=== PATIENT | male | born 2000 | race Two or more races ===

== ENCOUNTER 2024-07-02 18:48 | Emergency (ER) | payer MEDICAID, SELFPAY ==
--- NOTE | 2024-07-02 18:54 | EKG_ITS ---
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
[2024-07-02 19:09] VITALS: BP 124/75; PULSE 63; RESP 18; TEMP 36.9; O2SAT 98; BMI 27.1
--- NOTE | 2024-07-02 19:16 | XR_ITS ---
Examination: PA chest single view Technique: Upright PA chest single view Exam date and time: July 02, 2024 1948 hrs. Indications: Shortness of breath chest pain today. Findings: Normal heart size No pneumonia or pulmonary edema. The osseous structures are intact Impression: No active disease
--- NOTE | 2024-07-02 19:16 | EDRME_ITS ---
Rapid Medical Screening Exam [facility] Arrival date/time: 07/02/24 18:48 24M with no significant PMH presents to ED with muscle cramps, back pain, and SOB. Chief Complaint: Shortness of Breath/Dyspnea Vital signs: Vital Signs Temperature 98.5 F 07/02/24 19:09 Pulse Rate 63 07/02/24 19:09 Respiratory Rate 18 07/02/24 19:09 Blood Pressure 124/75 07/02/24 19:09 Pulse Oximetry (%) 98 07/02/24 19:09 Oxygen Delivery Method Room Air 07/02/24 19:09
[2024-07-02 20:09] LABS: Basophils % (Auto) 0 % (0-2.5); Eosinophils # (Auto) 0.2 Thou/mm3 (0.0-0.5); Eosinophils % (Auto) 1 % (0-10); Hematocrit 44.4 % (41.0-53.0); Hemoglobin 14.8 g/dL (13.5-16.0); Immature Granulocytes % (Auto) 0 % (0-0); Immature Granulocytes Auto 0.04 Thou/mm3 (0.00-0.00); Lymphocytes % (Auto) 17 % (10-50); Mean Corpuscular HGB Conc 33.3 g/dl (31.0-37.0); Mean Corpuscular Hemoglobin 28.5 pg (25.0-35.0); Mean Corpuscular Volume 86 fL (80-100); Monocytes # (Auto) 0.8 Thou/mm3 (0.0-0.8); Monocytes % (Auto) 7 % (0-12); Neutrophils # (Auto) 8.6 Thou/mm3 (1.8-7.7); Neutrophils % (Auto) 74 % (37-80); Nucleated Red Blood Cell % 0 /100 WBC (0); Platelet Count 332 Thou/mm3 (140-440); RDW Standard Deviation 42.3 fL (35.1-43.9); Red Blood Count 5.19 Miln/mm3 (4.50-5.90); White Blood Count 11.6 Thou/mm3 (3.8-10.6)
[2024-07-02 20:21] LABS: Collection Type, Urine Clean Catch; RBC,Urine 0 /hpf (0-3); Squamous Epithelial Cell,Urine 0 /hpf (0-5); WBC,Urine 0 /hpf (0-5)
[2024-07-02 20:22] LABS: Alanine Aminotransferase 12 U/L (10-49); Albumin, Serum 4.7 gm/dL (3.5-5.0); Albumin/Globulin Ratio 1.7 (1.2-2.2); Alkaline Phosphatase 62 U/L (46-116); Anion Gap 4 (7-16); Aspartate Amino Transferase 13 U/L (0-34); BUN/Creatinine Ratio 14 Ratio (12-20); Bilirubin,Total 0.3 mg/dL (0.3-1.2); Blood Urea Nitrogen 14 mg/dL (9-23); Calcium 10.1 mg/dL (8.3-10.6); Calcium (Corrected) 10.1 mg/dL (8.5-10.1); Carbon Dioxide 29.9 mMol/L (20.0-31.0); Chloride 106 mMol/L (98-107); Estimated Creatinine Clearance 113.9 mL/min (>60); Globulin 2.7 gm/dL (2.3-3.5); Glucose 91 mg/dL (74-106); Osmolality,Calculated 279 (275-295); Potassium 4.2 mMol/L (3.4-5.1); Sodium 140 mMol/L (136-145); Total Protein 7.4 gm/dL (5.7-8.2); Troponin I < 0.002 ng/mL (0.0-0.045); eGFR > 60 See Note
[2024-07-02 20:52] LABS: Amorphous Crystals,Urine Present (Absent); Bilirubin,Urine Negative (Negative); Blood,Urine Negative (Negative); Color,Urine Yellow (Lt Yel-Yel); Culture Indicated,Urine Not Indicated; Glucose, Urine Negative (Negative); Ketones,Urine Negative (Negative); Leukocyte Esterase,Urine Negative (Negative); Nitrite,Urine Negative (Negative); Protein,Urine Negative (Neg - Trace); Specific Gravity,Urine 1.024 (1.001-1.035); Urobilinogen,Urine Negative mg/dL (0.0-1.0)
[2024-07-02 20:53] LABS: Clarity,Urine Cloudy (Clear/Hazy)
[2024-07-02 21:51] LABS: Amphetamine/Methamp Scrn,U Negative (Negative); Barbiturate Screen,Urine Negative (Negative); Benzodiazepines Screen,Urine Negative (Negative); Benzoylecgonine Screen, Ur Negative (Negative); Fentanyl Screen,Urine Negative (Negative); Opiate Screen,Urine Negative (Negative); THC Screen,Urine Negative (Negative)
--- NOTE | 2024-07-02 22:22 | PC.NURSE ---
called pt @2221 from lobby and outside for revitals no answer
--- NOTE | 2024-07-02 22:45 | PC.NURSE ---
called pt in er lobby and outside of er and no answer.
--- NOTE | 2024-07-02 23:14 | PC.NURSE ---
called pt outside of er and in lobby and no answer.
== END 2024-07-02 23:19 | disposition left against medical advice (07) ==
LOC: SERX 19:56
PROVIDERS: Physician Assistant; Emergency Provider Emergency Medicine
DX: R06.02 Shortness of breath (principal); M54.9 Dorsalgia, unspecified; R25.2 Cramp and spasm; Z53.21 Procedure and treatment not carried out due to patient leaving prior to being seen by health care provider
CPT/HCPCS: 36415; 71045; 80053; 80307; 81001; 84484; 85025; 93005; 99281

== ENCOUNTER 2024-08-03 09:44 | Emergency (ER) | payer MEDICAID, SELFPAY ==
[2024-08-03 09:45] VITALS: BMI 26.6
[2024-08-03 09:56] VITALS: BP 125/81; PULSE 120; RESP 20; TEMP 38.1; O2SAT 96
--- NOTE | 2024-08-03 10:00 | XR_ITS ---
Examination: AP lateral chest 2 views TECHNIQUE: Upright AP lateral chest 2 views Exam date and time: August 03, 2024 1019 hours INDICATIONS: Chest pain coughing fever beginning 2 weeks ago. FINDINGS: Normal heart size. Lungs are clear. The osseous structures are intact IMPRESSION: No active disease
[2024-08-03] MEDS: IBUPROFEN TAB 400 MG TABLET 800 MG PO (10:15)
[2024-08-03] MEDS: PROMETHAZINE/DM SYRUP 5 ML DOSE PO (10:16)
--- NOTE | 2024-08-03 11:31 | EDNOTE_ITS ---
Upper Respiratory Inf. RME/HPI General Chief Complaint: Flu Like Symptoms Stated Complaint: CHEST PAIN. COUGH, HEADACHE Time Seen by Provider: 08/03/24 09:48 Arrival date/time: 08/03/24 09:44 24-year-old male with no significant medical problems presents emergency department today complaints of cough, congestion, headache, body aches ongoing for the last few days Limitations: no limitations Related Data Home Medications ?Medication ?Instructions ?Recorded ?Confirmed amoxicillin 875 mg-potassium 1 tab PO BID 05/05/19 05/05/19 clavulanate 125 mg tablet Previous Rx's ?Medication ?Instructions ?Recorded azithromycin 500 mg tablet See Rx Instructions PO .COMPLEX #6 08/03/24 tabs benzonatate 100 mg capsule 100 mg PO TID #14 caps 08/03/24 Allergies Allergy/AdvReac Type Severity Reaction Status Date / Time No Known Allergies Allergy Verified 08/03/24 09:49 Review of Systems Review of Systems Systems Reviewed: All systems reviewed, normal except as documented Constitutional Constitutional: Reports system reviewed and no additional complaints, except as documented, Reports body ache(s), Reports chills, Reports fever(s) and Reports headache(s) Eyes Eyes: Reports system reviewed and no additional complaints, except as documented and Denies blurry vision ENT Ears, Nose, Mouth, and Throat: Reports system reviewed and no additional complaints, except as documented, Reports headache(s), Reports nasal congestion and Reports nasal discharge Cardiovascular Cardiovascular: Reports system reviewed and no additional complaints, except as documented, Denies chest pain and Denies dyspnea Respiratory Respiratory: Reports system reviewed and no additional complaints, except as documented, Reports chest congestion, Reports cough and Denies dyspnea Gastrointestinal Gastrointestinal: Reports system reviewed and no additional complaints, except as documented and Denies abdominal pain Integumentary/Breasts Skin/Breast: Reports system reviewed and no additional complaints, except as documented and Denies rash Neurologic Neurologic: Reports system reviewed and no additional complaints, except as documented, Reports as per HPI and Reports headache(s) Past Medical History Past Medical History CARDIAC: Negative Cardiac Disorders or Congestive Heart Failure RESPIRATORY: Negative Chronic Obstructive Pulmonary Disease (COPD) or Asthma GENITOURINARY: Negative Renal Disease REPRODUCTIVE: Positive Fibroids ENDOCRINE: Negative Diabetes Mellitus Type 1 or Diabetes Mellitus Type 2 HEMATOLOGIC: Negative Sickle Cell Disease Social History SMOKING STATUS: Never smoker ED Exam General Limitations: Present no limitations General appearance: Present alert and in no apparent distress Head Head exam: Present atraumatic Eye Eye exam: Present normal appearance, PERRL and EOMI ENT ENT exam: Present normal exam, normal oropharynx and mucous membranes moist Neck Neck exam: Present normal inspection, full ROM and trachea midline Chest Chest inspection: Present normal inspection and symmetric chest wall rise Respiratory Respiratory exam: Present normal lung sounds bilaterally Cardiovascular Cardiovascular exam: Present regular rate, normal rhythm and normal heart sounds Abdominal Exam Abdominal exam: Present soft and normal bowel sounds Extremities Exam Extremities exam: Present normal inspection and full ROM Back Exam Back exam: Present normal inspection and full ROM Neurological Exam Neurological exam: Present alert, oriented X3 and CN II-XII intact Psychiatric Psychiatric exam: Present normal affect and normal mood Skin Skin exam: Present warm, dry, intact and normal color Course Quality Measures none Orders Category Date Time Status Bedside COVID-19 Antigen Test NOW Care 08/03/24 10:00 Completed Bedside Influenza A&B Antigen Test NOW Care 08/03/24 10:00 Completed XR chest 2V Stat Exams 08/03/24 10:00 Completed Ibuprofen Tab [Motrin Tab] Med 08/03/24 09:59 Discontinued 800 mg PO X1 ONE Promethazine/Dextromethorph [Phenergan Dm Syrup] Med 08/03/24 09:59 Discontinued 5 ml PO X1 ONE Vital Signs Vital signs: Vital Signs Temperature 100.5 F H 08/03/24 09:56 Pulse Rate 120 H 08/03/24 09:56 Respiratory Rate 20 08/03/24 09:56 Blood Pressure 125/81 08/03/24 09:56 Pulse Oximetry (%) 96 08/03/24 09:56 Oxygen Delivery Method Room Air 08/03/24 09:56 O2 saturation 96% room air within normal limits Upper Respiratory Infection MDM Narrative MDM Narrative:: 24-year-old male with no significant medical problems presents emergency department today complaints of cough, congestion, headache, body aches ongoing for the last few days On exam patient well-appearing patient's not appear ill or toxic patient is soft nontender abdomen On exam lungs are clear to auscultation patient is no difficulty breathing no tachypnea or dyspnea Chest x-ray flu and COVID obtained No acute emergent findings noted symptoms consistent with URI Patient discharged home in no distress to follow-up with primary care doctor in the next 24 to 48 hours and for any worsening symptoms to return to the ER immediately Patient data External records reviewed:: [facility] previous records Clinical information provided by:: patient Social determinants that could affect healthcare access:: none Patient has the following chronic illnesses:: None How is presenting disease/condition affected by chronic disease/condition?: no chronic disease Evaluation data The following diagnostics were reviewed and interpreted by me:: lab results and radiology exam(s) Lab and/or radiology exams considered but not ordered:: Labs radiology obtained Interpretation Summary: Reviewed by me Medications / Prescriptions Medications or Prescriptions considered but not ordered:: Given Medication administrations:: Medication Administration History Discontinued Medications Ibuprofen (Ibuprofen Tab 400 Mg Tablet) 800 mg PO X1 ONE Stop: 08/03/24 10:00 Last Admin: 08/03/24 10:15 Dose: 800 mg Documented By: TRISHA Promethazine HCl/Dextromethorphan (Promethazine/Dm Syrup 5 Ml Dose) 5 ml PO X1 ONE; Protocol Stop: 08/03/24 10:00 Last Admin: 08/03/24 10:16 Dose: 5 ml Documented By: TRISHA Given Consultations Consultation(s) initiated? (list below): No Diagnosis Upper Respiratory Differential Diagnosis: upper respiratory infection, otitis media, sinusitis, viral infection and pharyngitis Most likely diagnosis given after review of the tests above:: URI Admission Indicated Admission indicated?: not indicated Admission Request Was there a request for admission?: No Disposition Plan Disposition Plan: Discharge Discharge Attestation Discharge Attestation: The patient and all family members were given an opportunity to ask questions and understood the discharge instructions. Discharge instructions specifically effects, indications for sooner follow up or return to the emergency department, and the expected course of current diagnosis. Patient condition: Stable Discharge Plan Plan Patient Disposition: HOME (Self Care) Disposition Comment: Stable Prescriptions/Referrals Prescriptions/Med Rec: New benzonatate 100 mg capsule 100 mg PO TID Qty: 14 0RF azithromycin 500 mg tablet See Rx Instructions .ROUTE .COMPLEX Qty: 6 0RF Rx Instructions: take 500 mg today (day 1), then 250 mg for 4 days (days 2-5) No Action amoxicillin-pot clavulanate 875-125 mg Tablet 1 tab PO BID Referrals: Leah Coyle MD [Primary Care Provider] - 08/04/24 Problem List Clinical Impression: Upper respiratory infection Patient/Caregiver Discharge Instructions Additional Instructions: Please follow up with your primary care doctor in the next 24-48hrs for any worsening symptoms return here immediately Print Language: Serbian Stand Alone Forms: Laurie Award Info., Work/School Release, Patient Portal Info Letter PA/MICROSTRATEGY ARCHITECT DEVELOPER Supervising Physician PA/MICROSTRATEGY ARCHITECT DEVELOPER Supervising Physician: Dr. Rodríguez
== END 2024-08-03 11:59 | disposition home or self-care (01) ==
PROVIDERS: Emergency Provider Emergency Medicine; PCP Family Medicine
DX: J06.9 Acute upper respiratory infection, unspecified (principal)
CPT/HCPCS: 71046; 87400; 87811; 99283; A9270